=== PATIENT | male | born 1965 | race Caucasian/White ===

== ENCOUNTER 2017-10-24 08:13 | Emergency (ER) | payer OTHER ==
[~2017-10-24] VITALS: Ht 177.8 cm; Wt 96.2 kg
--- NOTE | ~2017-10-24 | EKG ---
[place], [place] ELECTROCARDIOGRAM REPORT NAME: DANILO FORRESTER UNIT #: [id number] ROOM: DOCTOR: SAL DRAFT REPORT BIRTHDATE: [birth year] [facility] Test Date: 2017-10-24 Test Time: 09:32:29 Pat Name: DANILO FORRESTER Department: Room: [facility] Gender: M Tool Specialist: : [id number] Requested By: CORRIE STEWART Order Number: [id number] Reading MD: Jeffery Levy MD Measurements Intervals [place] Rate: 66 P: 48 MA: 165 QRS: 52 QRSD: 93 T: 65 QT: 406 QTc: 426 Interpretive Statements Sinus rhythm RSR' in V1 or V2, right VCD or RVH Borderline ST elevation, lateral leads Electronically Signed On 10-25-2017 6:59:11 PDT by Jeffery Levy MD CM:EKGRPT:ELECTROCARDIOGRAM REPORT [id number] CORRIE CROWELL DRAFT REPORT CORRIE STEWART DO
[~2017-10-24 08:13] MED LIST: BIAXIN500 MG PO; CLARITIN10 MG PO; COMBIVENT1 ARO IH; DAYPRO600 M1 PO; NKHM PO; ZITHROMAX Z PA250 MG PO
[2017-10-24 08:14] VITALS: BP 158/96
[2017-10-24 09:34] LABS: BASO % 0.2 % (0.0-1.0); EOS # 0.1 10*3/uL (0.0-0.4); EOS % 2.4 % (1.0-4.0); HEMATOCRIT 42.8 % (42.0-52.0); HEMOGLOBIN 14.5 g/dl (14.0-18.0); LYMPH # 1.5 10*3/uL (1.3-4.4); LYMPH % 35.3 % (27.0-41.0); MEAN CELL VOLUME 88.6 fl (80.0-94.0); MEAN CORPUSCULAR HGB CONC 33.9 g/dl (33.0-37.0); MEAN PLATELET VOLUME 10.3 fl (9.6-12.3); MONO # 0.4 10*3/uL (0.1-1.0); MONO % 8.6 % (3.0-9.0); NEUT # 2.2 10*3/uL (2.3-7.9); NEUT % 53.3 % (47.0-73.0); PLATELET COUNT AUTOMATED 221 10*3/uL (130-400); RED BLOOD COUNT 4.83 10*6/uL (4.50-5.90); RED CELL DISTRI WIDTH 13.1 % (0-14.5); WHITE BLOOD COUNT 4.2 10*3/uL (4.8-10.8)
[2017-10-24 09:42] LABS: ACT PARTIAL THROMBO TIME 23.5 SECONDS (20.8-31.5)
[2017-10-24 09:48] LABS: ALBUMIN 3.7 gm/dl (3.1-4.5); ALKALINE PHOSPHATASE 66 U/L (45-117); BUN 17 mg/dl (7-24); CHLORIDE 107 mmol/L (98-107); CREATININE 1.02 mg/dL (0.70-1.30); LIPASE 186 U/L (73-393); POTASSIUM 4.3 mmol/L (3.5-5.1); SGOT/AST 32 IU/L (3-35); SGPT/ALT 79 U/L (12-78); SODIUM 140 mmol/L (136-145); TOTAL PROTEIN 7.9 gm/dL (6.4-8.2)
[2017-10-24 09:51] LABS: TROPONIN I < 0.015 ng/ml (<0.045)
[2017-10-24 10:26] VITALS: BP 137/80
== END 2017-10-24 11:05 | disposition left against medical advice (07) ==
LOC: ED 08:13 → EDHOLD 10:24 → ED 10:24 → 5E 10:40 → EDHOLD 10:40 → 5E 10:40 → ED 11:05
PROVIDERS: Emergency Medicine
DX: R55 Syncope and collapse (principal); M54.9 Dorsalgia, unspecified; M25.511 Pain in right shoulder